=== PATIENT | male | born 1995 | race Caucasian/White ===

== ENCOUNTER 2024-12-11 05:45 | Inpatient (IN) ==
[2024-12-11 06:26] LABS: Basophils # (auto) 0.03 K/uL (0.00-0.20); Basophils % (auto) 0.4 %; Eosinophils # (auto) 0.11 K/uL (0.00-0.50); Eosinophils % (auto) 1.3 %; Hematocrit (blood only) 47.4 % (42.0-52.0); Hemoglobin 16.8 g/dl (14.0-18.0); Immature Granulocytes # (auto) 0.03 K/uL (0.01-0.20); Immature Granulocytes % (auto) 0.4 %; Lymphocytes # (auto) 2.85 K/uL (1.20-3.40); Lymphocytes % (auto) 34.3 %; Mean Corpuscular Hemoglobin 29.5 pg (25.0-34.0); Mean Corpuscular Hgb Conc 35.4 g/dL (32.0-36.0); Mean Corpuscular Volume 83.2 fL (80.0-100.0); Mean Platelet Volume 10.4 fL (9.4-12.4); Monocytes # (auto) 0.65 K/uL (0.11-0.59); Monocytes % (auto) 7.8 %; Neutrophils # (auto) 4.64 K/uL (1.40-6.50); Neutrophils % (auto) 55.8 %; Platelet Count 338 K/uL (130-400); RDW Coefficient of Variation 12.8 % (11.5-14.5); RDW Standard Deviation 38.5 fL (36.4-46.3); White Blood Count 8.31 K/ul (4.8-10.8)
[2024-12-11 06:38] LABS: Albumin Globulin Ratio 1.8 (0.9-2); Albumin Level 4.8 gm/dl (3.4-5.0); BUN Creatinine Ratio 17.5 (10-20); Bilirubin,Total 0.8 mg/dl (0.2-1.0); Calcium 9.7 mg/dl (8.6-10.3); Creatinine Clr Calc Pharmacy 153.7 ml/min; Globulin 2.6 gm/dl (2.5-4.0); Magnesium 1.9 mg/dl (1.7-2.4); Potassium 4.1 mmol/L (3.5-5.1); Total Protein 7.4 gm/dl (6.0-8.3)
[2024-12-11 06:44] LABS: Troponin I High Sensitivity 2.9 pg/ml (0-20)
[2024-12-11 06:49] LABS: INR 1.1 (0.9-1.1); Partial Thromboplastin Ratio 1.1; Partial Thromboplastin Time 30 Seconds (21-31); Prothrombin Time 11.4 Seconds (9.0-12.0)
[2024-12-11 06:51] LABS: Appearance Urine Clear (Clear); Bilirubin Urine 1+ (Negative); Blood Urine Negative (Negative); Color Urine Yellow; Glucose Urine UA Negative (Negative); Ketones Urine Negative (Negative); Leukocyte Esterase Urine Negative (Negative); Nitrite Urine Negative (Negative); Protein Urine Trace (Negative); Specific Gravity Urine >= 1.030 (1.000-1.030); Urobilinogen Urine Negative (Negative)
--- NOTE | 2024-12-11 06:53 | Emergency Department Note ---
Impression & Plan Acute confusion ED Provider Note HISTORY OF PRESENT ILLNESS: Patient is a 29-year-old male presenting with reported confusion. Girlfriend of 6 years provides history. Reports that the patient started having decreasing mood and decreased energy in early October. 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 Girlfriend reports that the patient seemed very down and depressed but they went home to [place] and he ended up being admitted to the hospital in [place] for a week. Girlfriend reports that his creatinine kinase was significantly elevated during his stay at the hospital. Reports that with IV fluids he improved. States that he was seen by psychiatry and told he was depressed but no new medications were initiated. She reports that he had EEGs done which were negative and he had a "catatonia test" which was negative. Reports that the patient was very withdrawn throughout the holidays and did not "reacted all to getting really nice boots and did not interact with his loved ones." She states that he was doing better the 2 days prior to coming back to [place] and so they decided to come back further neck semester of law school. However, girlfriend reports that the patient has been sleeping frequently over the last few days. Reports that he "smiles and just pops his head and closes his eyes and does not really respond at all." She states this is not his normal demeanor. States that he has not been getting up out of bed. Denies any new medications or any new supplements. Denies any recreational drug use or alcohol use. No reported fevers. No reported falls. ROS: as above PHYSICAL EXAM: Constitutional: Patient appears in no acute distress. HENT: Head: Normocephalic and atraumatic. Eyes: EOMI, PERRL Mouth/Throat: Mucous membranes moist. Neck: Trachea midline. Neck supple. Cardiovascular: RRR, No murmurs, rubs or gallops. Intact distal pulses. Pulmonary/Chest: No respiratory distress. Breath sounds clear and equal bilaterally. No wheezes or rales. Abdominal: Abdomen soft, no tenderness, rebound or guarding. Musculoskeletal: No edema, tenderness or deformity noted. Skin: Warm and dry. No rash, erythema, pallor or cyanosis Neurological: Patient does not open his eyes to painful stimulus. When the eyes are attempted to be opened, the patient squeezes them shut. When bilateral lower extremities are lifted off the bed and crossed over each other to test for any facility, the patient does move his leg and then drop it to the bed. He is uncooperative with any further neurological examination. MDM: - Vitals signs stable - History obtained via patient's girlfriend, given patient being uncooperative with exam. History as above. - Chronic conditions affecting care: None - Differential diagnoses include, but are not limited to: Depression; catatonia; drug intoxication; alcohol intoxication; electrolyte abnormality; ACS; intracranial hemorrhage; ACS - Order placed for continuous cardiac monitoring. At this time, monitor showed rate of 80 bpm with normal sinus rhythm, per my interpretation. - External medical records reviewed. - EKG interpreted by myself showed normal sinus rhythm. Rate 89 bpm. QT 364. No acute ischemic changes. - Laboratory workup interpreted by myself showed normal WBC; normal PT/INR; stable electrolytes; slightly elevated ALT (61); normal CK; normal troponin; normal TSH; negative ethanol - Viral respiratory panel negative - UA negative for infection - UDS negative - CXR negative for pneumonia, per my interpretation - CT head wo contrast negative for acute pathology -Patient does not participate in his examination. As documented, he does squeezes eyes shut when you try to open them and he does purposely move his legs away from each other prior to dropping them to the bed. Will admit to hospitalist service. Likely a psychiatric component, given the precipitation of the events with him failing a test. Patient given 1 mg IV ativan. - Discussion was had with mattress spring encaser about patient's case and need for admission - Hospitalist consulted for admission - Patient admitted to [facility] hospitalist service for further evaluation and management. ASSESSMENT AND PLAN: Diagnosis: acute confusion Plan: admit Past Med/Surg History Problem List (Updated 12/11/24 @ 08:34 by Liz Rao MD) Acute confusion (Acute) ADHD Medical History ADHD Surgical History No history of previous surgery Social History Smoking Status: Former smoker Preferred Language: Amharic Feels Safe at Home: Yes Allergies Allergies Allergy/AdvReac Type Severity Reaction Status Date / Time No Known Allergies Allergy Verified 01/06/23 09:33 Results & Data (ED) Vital Signs Vital Signs - 24 hr 12/11/24 05:47 12/11/24 05:57 12/11/24 06:05 Temperature 37.0 C Temperature Source Oral Pulse Rate 82 79 86 Pulse Rate [Apical] Pulse Rhythm Regular Pulse Rhythm [Apical] Pulse Strength [Apical] Respiratory Rate 18 24 Respiratory Effort / Characteristics Non-Labored Spontaneous Respiratory Depth Normal Respiratory Pattern Blood Pressure 141/95 H Blood Pressure [Left Arm] Blood Pressure Mean 110 Blood Pressure Mean [Left Arm] Blood Pressure Position [Left Arm] Pulse Oximetry 95 96 Oxygen Delivery Method Room Air Room Air Sepsis Recent Fever Within 48 Hours No Sepsis New/Unexplained Change in Mental Status No Sepsis Action Taken by Nursing No Action Required 12/11/24 06:45 Temperature Temperature Source Pulse Rate Pulse Rate [Apical] 76 Pulse Rhythm Pulse Rhythm [Apical] Regular Pulse Strength [Apical] Normal Respiratory Rate 20 Respiratory Effort / Characteristics Non-Labored Spontaneous Respiratory Depth Normal Respiratory Pattern Regular Blood Pressure Blood Pressure [Left Arm] 128/89 Blood Pressure Mean Blood Pressure Mean [Left Arm] 102 Blood Pressure Position [Left Arm] Lying Pulse Oximetry 96 Oxygen Delivery Method Room Air Sepsis Recent Fever Within 48 Hours Sepsis New/Unexplained Change in Mental Status Sepsis Action Taken by Nursing Laboratory Data 12/11/24 06:02 12/11/24 06:02 Lab Results 12/11/24 12/11/24 Range/Units 06:02 06:32 WBC 8.31 (4.8-10.8) K/ul RBC 5.70 (4.70-6.10) M/uL Hgb 16.8 (14.0-18.0) g/dl Hct 47.4 (42.0-52.0) % MCV 83.2 (80.0-100.0) fL MCH 29.5 (25.0-34.0) pg MCHC 35.4 (32.0-36.0) g/dL RDW Std Deviation 38.5 (36.4-46.3) fL RDW Coeff of Maurice 12.8 (11.5-14.5) % Plt Count 338 (130-400) K/uL MPV 10.4 (9.4-12.4) fL Immature Gran % (Auto) 0.4 % Neut % (Auto) 55.8 % Lymph % (Auto) 34.3 % Stewart % (Auto) 7.8 % Eos % (Auto) 1.3 % Baso % (Auto) 0.4 % Neut # (Auto) 4.64 (1.40-6.50) K/uL Lymph # (Auto) 2.85 (1.20-3.40) K/uL Stewart # (Auto) 0.65 H (0.11-0.59) K/uL Eos # (Auto) 0.11 (0.00-0.50) K/uL Baso # (Auto) 0.03 (0.00-0.20) K/uL Immature Gran # (Auto) 0.03 (0.01-0.20) K/uL PT 11.4 (9.0-12.0) Seconds INR 1.1 (0.9-1.1) APTT 30 (21-31) Seconds PTT Ratio 1.1 Sodium 138 (136-145) mmol/L Potassium 4.1 (3.5-5.1) mmol/L Chloride 104 (98-107) mmol/L Carbon Dioxide 24 (21-32) mmol/L Anion Gap 10 (3-11) BUN 14 (6-23) mg/dl Creatinine 0.80 (0.6-1.4) mg/dl Est Cr Clr Drug Dosing 153.7 ml/min eGFR 123.63 BUN/Creatinine Ratio 17.5 (10-20) Glucose 103 H (70-99(Fasting)) mg/dl Calcium 9.7 (8.6-10.3) mg/dl Magnesium 1.9 (1.7-2.4) mg/dl Total Bilirubin 0.8 (0.2-1.0) mg/dl AST 28 (13-39) U/L ALT 61 H (7-52) U/L Alkaline Phosphatase 72 (34-104) U/L Ammonia 31.0 (18-72) umol/L Total Creatine Kinase 51 (30-223) U/L Troponin I High Sens 2.9 (0-20) pg/ml Total Protein 7.4 (6.0-8.3) gm/dl Albumin 4.8 (3.4-5.0) gm/dl Globulin 2.6 (2.5-4.0) gm/dl Albumin/Globulin Ratio 1.8 (0.9-2) TSH 1.997 (0.300-4.500) uIu/ml Urine Color Yellow Urine Appearance Clear (Clear) Urine pH 6.0 (4.5-7.5) Ur Specific [place] >= 1.030 (1.000-1.030) Urine Protein Trace H (Negative) Urine Glucose (UA) Negative (Negative) Urine Ketones Negative (Negative) Urine Blood Negative (Negative) Urine Nitrite Negative (Negative) Urine Bilirubin 1+ H (Negative) Urine Urobilinogen Negative (Negative) Ur Leukocyte Esterase Negative (Negative) Urine RBC 0-2 (0-2) /hpf Urine WBC 0-5 (0-5) /hpf Ur Epithelial Cells 0-2 (0-2) /hpf Urine Bacteria None Seen (None Seen) Urine Mucus Present A (None Prsent) Urine Opiates Screen Neg (Neg) Ur Methadone, Qual Neg (Neg) Urine Fentanyl Screen Neg (Neg) Urine Barbiturates Neg (Neg) Ur Phencyclidine (PCP) Neg (Neg) U Amphetamin/Meth Scrn Neg (Neg) MDMA (Ecstasy) Screen Neg (Neg) U Benzodiazepines Scrn Neg (Neg) Ur Cocaine Metabolite Neg (Neg) U Marijuana (THC) Screen Neg (Neg) Ethyl Alcohol mg/dL < 10.0 (<10.0) mg/dl Adenovirus (PCR) Not Detected (NotDetected) B. pertussis DNA (PCR) Not Detected (NotDetected) B.parapertussis DNA PCR Not Detected (NotDetected) C. pneumoniae DNA (PCR) Not Detected (NotDetected) Coronavirus OC43 (PCR) Not Detected (NotDetected) Coronavirus HKU1 (PCR) Not Detected (NotDetected) Coronavirus 229E (PCR) Not Detected (NotDetected) SARS-CoV-2 (PCR) Not Detected (NotDetected) Coronavirus NL63 (PCR) Not Detected (NotDetected) Human Metapneumovir PCR Not Detected (NotDetected) Influenza Type A (PCR) Not Detected (NotDetected) Influenza Type B (PCR) Not Detected (NotDetected) M. pneumoniae (PCR) Not Detected (NotDetected) Parainfluenza 1 (PCR) Not Detected (NotDetected) Parainfluenza 2 (PCR) Not Detected (NotDetected) Parainfluenza 3 (PCR) Not Detected (NotDetected) Parainfluenza 4 (PCR) Not Detected (NotDetected) RSV (PCR) Not Detected (NotDetected) Entero/Rhino (PCR) Not Detected (NotDetected) Administered Medications Discontinued Medications Lorazepam (Lorazepam 2 Mg/1 Ml Vial) 1 mg IV NOW STA Stop: 12/11/24 07:15 Last Admin: 12/11/24 07:56 Dose: 1 mg Documented By: LEROY Imaging Data Radiologist's Impression: Head CT 12/11/24 06:07 EXAM: CT head/brain wo con CLINICAL HISTORY: ALTERED MENTAL STATUS. TECHNIQUE: Axial non-contrast CT scan of the brain was performed from the skull base to the high parietal region. One of the following dose reduction techniques were utilized for this exam: Automated exposure control, adjustment of the mA and/or kV according to patient size, use of iterative reconstruction. CTDI: 38.24 mGy. DLP :625.80 mGy.cm. COMPARISON: None. FINDINGS: Brain Parenchyma:: Normal attenuation of the cerebral hemispheres, cerebellum, and brainstem. Jose Francisco-cisterna magna is seen. No evidence of hemorrhage, or mass effect. No abnormal areas of hypo- or hyperattenuation. Ventricular System: Ventricles are normal in size and configuration. No evidence of hydrocephalus or ventricular enlargement. Subarachnoid Spaces: Normal sulci and cisterns. No evidence of subarachnoid hemorrhage or extra-axial fluid collections. Sinuses: Clear paranasal sinuses. No evidence of sinusitis or mucosal thickening. Mastoid Air Cells: Clear mastoid air cells. No evidence of mastoiditis. Skull: Normal skull morphology. IMPRESSION: No acute cerebral abnormality. Electronically signed by Carole Stoll 12-11-2024 07:10 AM Discharge Plan Visit Data Chief Complaint: Altered Mental Status Stated Complaint: SEVERE FATTY LIVER,AMNESIA,CAN'T FUNCTION ED Provider: Liz Rao Discharge Problem: Acute confusion Forms Stand Alone Forms: [facility] Referrals Referrals: [facility] [Primary Care Provider] -
[2024-12-11 06:54] LABS: Thyroid Stimulating Hormone 1.997 uIu/ml (0.300-4.500)
[2024-12-11 07:04] LABS: Adenovirus PCR Not Detected (NotDetected); Bordetella parapertussis PCR Not Detected (NotDetected); Bordetella pertussis PCR Not Detected (NotDetected); Chlamydia pneumoniae PCR Not Detected (NotDetected); Coronavirus 229E PCR Not Detected (NotDetected); Coronavirus CoV-2 (COVID19)PCR Not Detected (NotDetected); Coronavirus HKU1 PCR Not Detected (NotDetected); Coronavirus NL63 PCR Not Detected (NotDetected); Coronavirus OC43PCR Not Detected (NotDetected); Human Metapneumovirus PCR Not Detected (NotDetected); Influenza A PCR Not Detected (NotDetected); Influenza B PCR Not Detected (NotDetected); Mycoplasma pneumoniae PCR Not Detected (NotDetected); Parainfluenza Virus 1 PCR Not Detected (NotDetected); Parainfluenza Virus 2 PCR Not Detected (NotDetected); Parainfluenza Virus 3 PCR Not Detected (NotDetected); Parainfluenza Virus 4 PCR Not Detected (NotDetected); Respiratory Syncytial VirusPCR Not Detected (NotDetected); Rhinovirus/Enterovirus PCR Not Detected (NotDetected)
[2024-12-11 07:10] LABS: Bacteria Urine None Seen (None Seen); Epithelial Cell Urine 0-2 /hpf (0-2); Mucus Urine Present (None Prsent); RBC Urine 0-2 /hpf (0-2); WBC Urine 0-5 /hpf (0-5)
--- NOTE | 2024-12-11 07:10 | CT Scan Report ---
EXAM: CT head/brain wo con CLINICAL HISTORY: ALTERED MENTAL STATUS. TECHNIQUE: Axial non-contrast CT scan of the brain was performed from the skull base to the high parietal region. One of the following dose reduction techniques were utilized for this exam: Automated exposure control, adjustment of the mA and/or kV according to patient size, use of iterative reconstruction. CTDI: 38.24 mGy. DLP :625.80 mGy.cm. COMPARISON: None. FINDINGS: Brain Parenchyma:: Normal attenuation of the cerebral hemispheres, cerebellum, and brainstem. Jose Francisco-cisterna magna is seen. No evidence of hemorrhage, or mass effect. No abnormal areas of hypo- or hyperattenuation. Ventricular System: Ventricles are normal in size and configuration. No evidence of hydrocephalus or ventricular enlargement. Subarachnoid Spaces: Normal sulci and cisterns. No evidence of subarachnoid hemorrhage or extra-axial fluid collections. Sinuses: Clear paranasal sinuses. No evidence of sinusitis or mucosal thickening. Mastoid Air Cells: Clear mastoid air cells. No evidence of mastoiditis. Skull: Normal skull morphology. IMPRESSION: No acute cerebral abnormality. Electronically signed by Carole Stoll 12-11-2024 07:10 AM
[2024-12-11 07:55] LABS: Amphetamines+Metham, Urine Neg (Neg); Barbiturates, Urine Neg (Neg); Benzodiazepine, Urine Neg (Neg); Cocaine, Urine Neg (Neg); Fentanyl, Urine Neg (Neg); MDMA (Ecstacy), Urine Neg (Neg); Marijuana, Urine Neg (Neg); Methadone, Urine Neg (Neg); Opiate, Urine Neg (Neg); Phencyclidine, Urine Neg (Neg)
[2024-12-11] MEDS: LORazepam 2 MG/1 ML VIAL IV STA (07:56)
--- NOTE | 2024-12-11 08:41 | XRay Report ---
EXAM: XR chest 1V portable CLINICAL HISTORY: WEAKNESS SDM TECHNIQUE: X-ray images of the chest were obtained in AP projection. COMPARISON: No prior studies available for comparison. FINDINGS: Pulmonary Parenchyma: No evidence of consolidation, collapse, or focal opacities. No evidence of pleural effusion or pleural thickening. Heart and Mediastinum: Increased cardiac size. Right prominent hilar vascular markings. Bony Thorax: Bony thorax appears intact without fractures or deformities. IMPRESSION: 1. Cardiomegaly with right prominent hilar vascular markings; possibly related to congestion. 2. No evidence of consolidation, collapse, or focal opacities. Electronically signed by Carole Stoll 12-11-2024 08:41 AM
[2024-12-11] MEDS: SODIUM CHLORIDE 0.9% 1,000 ML IV SCH (08:45)
--- NOTE | 2024-12-11 08:45 | History & Physical Report ---
Date of Service December 11, 2024 Assessment & Plan (1) Unresponsive state: Plan: Supportive care. IV fluids. Currently NPO. Psychiatry consultation pending. Telemetry. (2) ADHD: Plan: By history. Currently he takes no medications according to his girlfriend who is at the bedside (3) Hepatic steatosis: Plan: Mildly elevated ALT. Other liver enzymes are entirely normal. Ammonia level normal. Plan Await psychiatry evaluation. He may need inpatient psychiatric care History of Present Illness Chief Complaint: Unresponsive Primary Care Provider: [facility] 29-year-old white male with a history of ADHD on no medications and depression. He was recently hospitalized and [place] for suspected depression. At that time, his EEG was reportedly normal. In our ED his chest x-ray reveals low lung volumes, EKG reveals normal sinus rhythm with nonspecific ST and T wave changes, head CT scan is negative, ammonia level is normal, CK is 51. Talk screen is pending. On examination the patient is unresponsive but squints to prevent eye examination. He will not allow either hand to fall on his face. He does grimace with sternal rub and he withdraws bilateral feet with plantar tickle. He received lorazepam intravenously in the ED. ABGs are pending to rule out CO2 narcosis but CO2 on basic metabolic profile is within normal limits. Psychiatry consultation has been requested. He will be kept n.p.o. on IV fluids and admitted for further evaluation and treatment. Allergies Allergy/AdvReac Type Severity Reaction Status Date / Time No Known Allergies Allergy Verified 01/06/23 09:33 Past Med/Surg History Problem List (Updated 12/11/24 @ 08:43 by López Davenport MD) Hepatic steatosis Unresponsive state Acute confusion (Acute) ADHD Medical History ADHD Surgical History No history of previous surgery Social History Smoking Status: Former smoker Preferred Language: Arabic Feels Safe at Home: Yes Review of Systems 2 Review of Systems: The patient is unresponsive and unable to answer any questions regarding review of systems at this time Physical Exam 2 Physical Exam: General-unresponsive. No fever HEENT-head atraumatic and normocephalic, the patient resists eye opening with bilateral squinting Neck-no lymphadenopathy or thyromegaly, trachea midline Chest-clear to auscultation. No rales, wheezing or rhonchi Cardiac-regular rate and rhythm, normal S1 and S2 Abdomen-normal bowel sounds, no hepatosplenomegaly Extremities-no cyanosis, clubbing, or edema Neuro-the patient is unresponsive. He squints to prevent eye examination. He does not allow either hand to fall on his face. He does react to sternal rub. He withdraws both feet to plantar tickle. Psychcannot assess Results & Data Results & Data Vital Signs (Past 12 Hours) Vital Signs Temp Pulse Pulse Resp BP BP Pulse Ox 12/11/24 06:45 76 20 128/89 96 12/11/24 06:05 86 24 96 12/11/24 05:57 79 12/11/24 05:47 37.0 C 82 18 141/95 H 95 O2 Del Method 12/11/24 06:45 Room Air 12/11/24 06:05 Room Air 12/11/24 05:57 12/11/24 05:47 Room Air Laboratory Results 12/11/24 06:02 12/11/24 06:02 PG Care Time/CCT Total # of Minutes Spent Total Time Spent with Patient: Total time spent is greater than 50% in coordination of care (as documented) at patient's floor/unit and/or counseling patient: Coding Level of Care Code 38698 INT INP/OBS CARE 3/75MIN Diagnoses Unresponsive state R41.89 ADHD F90.9 Hepatic steatosis K76.0
[2024-12-11 09:04] LABS: iSTAT Arterial Blood Gas HCO3 25 meg/L (19-24); iSTAT Arterial Blood Gas pCO2 40 mmHg (35-46); iSTAT Arterial Blood Gas pH 7.41 (7.35-7.45); iSTAT Arterial Blood Gas pO2 76 mmHg (80-95); iSTAT Carbon Dioxide 26 mmol/L (24-31); iSTAT FiO2 21 %; iSTAT Hematocrit 46 % (42-52); iSTAT Hemoglobin 15.6 g/dl (14.0-18.0); iSTAT Potassium 4.1 mmol/L (3.3-5.0); iSTAT Sample Type Arterial; iSTAT Sodium 138 mmol/L (135-144)
[2024-12-11] MEDS ORDERED: ONDANSETRON INJ 2 MG/ML 2 ML VIAL IV PRN (11:14)
[2024-12-11] MEDS ORDERED: ACETAMINOPHEN 1,000 MG/100 ML VIAL IV PRN (11:14)
[2024-12-11 12:07] LABS: Albumin Globulin Ratio 1.8 (0.9-2); Albumin Level 4.4 gm/dl (3.4-5.0); BUN Creatinine Ratio 15.6 (10-20); Bilirubin,Total 0.7 mg/dl (0.2-1.0); Calcium 9.4 mg/dl (8.6-10.3); Creatinine Clr Calc Pharmacy 159.7 ml/min; Globulin 2.4 gm/dl (2.5-4.0); Total Protein 6.8 gm/dl (6.0-8.3)
--- NOTE | 2024-12-11 14:50 | Psychiatric Consultation ---
Date of Consultation December 11, 2024 Impression / Recommendations Impression Diagnostically significant concern for catatonia and possibly psychosis given suspicion he may be internally preoccupied. Does seem that he had a fairly dramatic response to ativan dose earlier in ED, as was eating and speaking with his eyes open on my examination. Differential including functional neurological disorder given this was reportedly one of the suspected possible diagnoses following his admission in [place], but at this time high suspicion for catatonia. New Hitesh scale rating based on report of initial symptoms on ED arrival and based on my assessment: 13. Overall, I spent a total of 60 minutes with this case including review of chart records, review of labwork, direct evaluation of the patient at bedside, counseling the patient, discussion of the patient with the hospitalist provider, discussion with the psychiatric liason during clinical rounds, review of collateral historian information and documentation in the electronic health record. (1) Catatonia: (2) Unresponsive state: Plan -Start ativan 1mg TID IV for presumed catatonia, if he shows a beneficial response then can increase further to 2mg TID IV as needed -Will consider use of antipsychotic as catatonia symptoms resolve if concerns for psychosis/internal preoccupation persists Psych History Identifying Data 29 yo man with history of depression, anxiety, ADHD and recent hospitalization in [place] for elevated CK, concern for catatonia and new diagnosis of fatty liver disease and ZULEMA (no CPAP yet, using wedge pillow) admitted medically due to unresponsive state. Psychiatry consulted due to concern for catatonia. Chief Complaint "I'm ok". History of Present Illness Brandon was brought to the hospital by his girlfriend due to periods of unresponsiveness with poor po intake, excessive somnolence, odd posturing and holding his neck in rigid positions that has been worsening over the past few weeks. 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 His girlfriend at bedside shows a video of him with his head held at an odd, uncomfortable appearing position off the bed for periods of time and some small magnitude repetitive movements of his neck while his eyes are closed. She reports hospital in [place] "ruled out" catatonia after he became fatigued from a dose of ativan there. CK elevation was treated and he seemed to be showing some improvement on discharge. Since coming to [place] symptoms have worsened again. He's sleeping all the time but often doesn't appear to be sleeping per her report. He normally loves food but is hardly eating. At time of my assessment he is A&Ox4, eating a sandwich, eyes open. Speaks when asked questions but otherwise largely passive during conversation. Seems to be possibly responding to internal stimuli, smiling at times despite context of his girlfriend's description of his distressing symptoms and pauses when asked about auditory hallucinations in a manner that suggests he may be hearing voices. When asked about his pause he again denies any voices. He doesn't endorse any significant psychiatric symptoms. Does engage in automatic obedience (i.e. puts out hand when I ask him to do so and similarly with his tongue). Allergies Allergy/AdvReac Type Severity Reaction Status Date / Time No Known Allergies Allergy Verified 01/06/23 09:33 Home Medications Medication Instructions Recorded Confirmed Type No Known Home Medications 12/11/24 12/11/24 History Patient History Medical History ADHD Surgical History No history of previous surgery Social History Smoking Status: Never smoker Hx Alcohol Use: No Hx Substance Use: No Preferred Language: Hungarian Communication Ability: Impaired Brick Or Block Maker Required: No Beliefs That Will Affect Care: None Current Living Situation: Spouse Current Living Situation Comment: [employer] student, lives with girlfriend Feels Safe at Home: Yes Physical Exam Vital Signs (Past 24 Hours): Last Vital Signs Temp 37.0 C 12/11/24 05:47 Pulse 72 12/11/24 10:12 Resp 15 12/11/24 10:12 BP 127/85 12/11/24 10:00 Pulse Ox 96 12/11/24 10:12 O2 Del Method Room Air 12/11/24 06:45 Results & Data (PSY) Medications Administered Sodium Chloride (Nss) 1,000 mls @ 80 mls/hr IV .[id number] YOLANDA Stop: 12/12/24 08:29 Last Admin: 12/11/24 08:45 Dose: 80 mls/hr Documented By: ML Coding Level of Care Code 48886 IN/OBS CONSULT LVL 4,60M Diagnoses Catatonia F06.1 Unresponsive state R41.89
--- NOTE | 2024-12-11 14:58 | Electrocardiogram Report ---
Test Reason : Blood Pressure : */* mmHG Vent. Rate : 89 BPM Atrial Rate : 89 BPM P-R Int : 140 ms QRS Dur : 84 ms QT Int : 364 ms P-R-T Axes : 26 44 1 degrees QTcB Int : 442 ms Normal sinus rhythm Nonspecific T wave abnormality Abnormal ECG No previous ECGs available Confirmed by Lang Jesus ([id number]) on 12/11/2024 2:58:15 PM Referred By: Confirmed By: Lang Jesus
[2024-12-11] MEDS ORDERED: LORazepam 2 MG/1 ML VIAL IV SCH (21:00)
[2024-12-11] MEDS: LORazepam 2 MG/1 ML VIAL IV SCH (21:03)
[2024-12-12 10:42] LABS: Alanine Aminotransferase 52 U/L (7-52); Albumin Level 4.4 gm/dl (3.4-5.0); Alkaline Phosphatase 59 U/L (34-104); BUN Creatinine Ratio 17.6 (10-20); Bilirubin,Total 0.7 mg/dl (0.2-1.0); Blood Urea Nitrogen 13 mg/dl (6-23); Calcium 9.2 mg/dl (8.6-10.3); Carbon Dioxide 25 mmol/L (21-32); Chloride 106 mmol/L (98-107); Creatine Kinase 57 U/L (30-223); Creatinine Clr Calc Pharmacy 166.2 ml/min; Globulin 2.2 gm/dl (2.5-4.0); Glucose 95 mg/dl (70-99(Fasting)); Total Protein 6.6 gm/dl (6.0-8.3)
[2024-12-12 11:33] LABS: Potassium 3.9 mmol/L (3.5-5.1)
--- NOTE | 2024-12-12 12:56 | Neurology Consultation ---
Date of Consultation December 12, 2024 Assessment & Plan (1) Catatonia: History of Present Illness Attending Physician: López Davenport MD History of Present Illness S; pt awake and follows command well. actually spoke too. chart reviewed. no increase tone noted. pt's girl friend showed me the EEG report and [place] medical notes. EEG normal. admission HPI: 29-year-old white male with a history of ADHD on no medications and depression. He was recently hospitalized and [place] for suspected depression. At that time, his EEG was reportedly normal. In our ED his chest x-ray reveals low lung volumes, EKG reveals normal sinus rhythm with nonspecific ST and T wave changes, head CT scan is negative, ammonia level is normal, CK is 51. Talk screen is pending. On examination the patient is unresponsive but squints to prevent eye examination. He will not allow either hand to fall on his face. He does grimace with sternal rub and he withdraws bilateral feet with plantar tickle. He received lorazepam intravenously in the ED. ABGs are pending to rule out CO2 narcosis but CO2 on basic metabolic profile is within normal limits. Psychiatry consultation has been requested. He will be kept n.p.o. on IV fluids and admitted for further evaluation and treatment. Allergies Allergy/AdvReac Type Severity Reaction Status Date / Time No Known Allergies Allergy Verified 01/06/23 09:33 Home Medications Medication Instructions Recorded Confirmed Type No Known Home Medications 12/11/24 12/11/24 History Patient History Medical History ADHD Surgical History No history of previous surgery Social History Smoking Status: Never smoker Hx Alcohol Use: No Hx Substance Use: No Preferred Language: Thai Communication Ability: Impaired Candy Supervisor Required: No Beliefs That Will Affect Care: None Current Living Situation: Spouse Current Living Situation Comment: [employer] student, lives with girlfriend Feels Safe at Home: Yes Exam (Neuro) Physical Exam: HEENT: normocephalic grossly Neuro: Mental: Alert, follows command well. said "thank you" and also seems to understand the conversation i was having with the family. normal comprehension. CN: PERRL, Full EOM, symmetric face, midline T/U/P, grossly full ROM neck Motor: No abnormal movements, normal tone, 5/5 t/o bilaterally grossly. 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 I do not see neurological etiology for his catatonia or signs of seizure. Mom is convinced that he has seizure disorder. Recommendations: i try to convince mom and family that this is not seizure and EEG is not necessary but they demand having another EEG. will order EEG not much to offer from neurology. continue tx with Psychiatry. will sign off, call again if there is new question, otherwise, no further neuro work up needed. Chart reviewed I have spent more than 50% educating patient/family about potential diagnosis and neurological evaluation and coordinating care with patient's treatment team. Total time spent (including chart review and coordination of care): 45 min (this includes chart review). Results & Data Vital Signs (Past 12 Hours) Vital Signs Temp Pulse Pulse Resp BP BP Pulse Ox 12/12/24 11:46 36.7 C 86 18 127/79 96 12/12/24 07:53 36.7 C 91 H 18 122/85 96 12/12/24 07:27 94 H O2 Del Method 12/12/24 11:46 Room Air 12/12/24 07:53 Room Air 12/12/24 07:27 PG Care Time/CCT Total # of Minutes Spent Total Time Spent with Patient: Total time spent is greater than 50% in coordination of care (as documented) at patient's floor/unit and/or counseling patient: Coding Level of Care Code 53611 IN/OBS CONSULT LVL 3,45M Diagnoses Catatonia F06.1
--- NOTE | 2024-12-12 14:21 | Psychiatric Progress Note ---
Date of Service December 12, 2024 Impression / Recommendations Impression Diagnostically significant concern for catatonia and possibly psychosis given suspicion he may be internally preoccupied. Does seem that he had a fairly dramatic response to ativan dose earlier in ED, as was eating and speaking with his eyes open on my examination. Differential including functional neurological disorder given this was reportedly one of the suspected possible diagnoses following his admission in [place] vs prolonged withdrawal symptoms from previous energy drink/caffeine/Vyanse use. A: Faily declined ativan today due to concerns for shallow breathing and sedation this morning. EEG planned, recommend ativan trial resume after this. Ongoing odd blinking/staring today which could be catatonia vs psychosis. If limited response to ativan at 1mg dose consider titration. If ativan seems to be making sedation worse then would discontinue after 1-2 days and trial risperidone 1mg BID to rule out internal preoccupation. Overall, I spent a total of 60 minutes with this case including review of chart records, review of labwork, direct evaluation of the patient at bedside, counseling the patient, discussion of the patient with the hospitalist provider, discussion with the psychiatric liason during clinical rounds, review of collateral historian information from girlfriend and mother at bedside and documentation in the electronic health record. (1) Catatonia: (2) Unresponsive state: Plan 12/13/2024: -consider overnight pulse ox monitor given recent diagnosis of sleep apnea -continue ativan 1mg TID IV and titrate to effect up to 2mg TID IV -if limited response to ativan or increased sedation then discontinue and trial risperidone 1mg BID due to concern for possible internal preoccupation. 12/12/2024: -Start ativan 1mg TID IV for presumed catatonia, if he shows a beneficial response then can increase further to 2mg TID IV as needed -Will consider use of antipsychotic as catatonia symptoms resolve if concerns for psychosis/internal preoccupation persists Interval History Identifying Information 29 yo man with history of depression, anxiety, ADHD and recent hospitalization in [place] for elevated CK, concern for catatonia and new diagnosis of fatty liver disease and ZULEMA (no CPAP yet, using wedge pillow) admitted medically due to unresponsive state. Psychiatry consulted due to concern for catatonia. Chief Complaint "Hi". Subjective Subjective Patient was seen & assessed and interval progress reviewed. No overnight events noted. Family declined ativan IM this morning. Mid-day he is awake and says hi, odd stare at times, slightly latent response when asked about possible visual hallucinations. He then closes his eyes and eyelids are noted to flutter repetitively. His mother and girlfriend at bedside ask a variety of questions about diagnostic clarification, treatments, catatonia symptoms and reviewed possibility for internal preoccupation. Physical Exam Vital Signs (Past 24 Hours) Last Vital Signs Temp 36.7 C 12/12/24 11:46 Pulse 86 12/12/24 11:46 Resp 18 12/12/24 11:46 BP 127/79 12/12/24 11:46 Pulse Ox 96 12/12/24 11:46 O2 Del Method Room Air 12/12/24 11:46 Results & Data ([facility]) Laboratory Results Laboratory Results - last 24 hr 12/12/24 12/12/24 05:57 10:51 Sodium TNP 137 Potassium TNP 3.9 Chloride 106 Carbon Dioxide 25 Anion Gap TNP BUN 13 Creatinine 0.74 Est Cr Clr Drug Dosing 166.2 eGFR 126.57 BUN/Creatinine Ratio 17.6 Glucose 95 Calcium 9.2 Total Bilirubin 0.7 AST TNP 29 ALT 52 Alkaline Phosphatase 59 Total Creatine Kinase 57 Total Protein 6.6 Albumin 4.4 Globulin 2.2 L Albumin/Globulin Ratio 2.0 Current Inpatient Medications Current Inpatient Medications: Current Inpatient Medications Acetaminophen (Ofirmev) 1,000 mg in 100 mls @ 400 mls/hr IV Q8H PRN PRN Reason: Fever Stop: 12/14/24 11:13 Lorazepam (Lorazepam 2 Mg/1 Ml Vial) 1 mg IV TID [facility] Stop: 01/10/25 20:59 Last Admin: 12/12/24 10:05 Dose: Not Given Ondansetron HCl (Ondansetron Inj 2 Mg/Ml 2 Ml Vial) 4 mg IV Q6H PRN PRN Reason: Nausea And Vomiting Stop: 01/10/25 11:13
--- NOTE | 2024-12-12 15:21 | Hospitalist Progress Note ---
Date of Service December 12, 2024 Assessment & Plan (1) Unresponsive state: Plan: Supportive care. The patient is able to take solids and liquids orally when awake. Psychiatry consultation noted. Neurology consultation noted. EEG and brain MRI scan ordered and pending. Telemetry. (2) ADHD: Plan: By history. Currently he takes no medications according to his girlfriend who is at the bedside (3) Hepatic steatosis: Plan: Mildly elevated ALT. Other liver enzymes are entirely normal. Ammonia level normal. Plan Continue Ativan therapy as recommended by psychiatry. Await brain MRI scan and EEG although neurology consultation suggests low probability of seizure disorder. Hopeful discharge to home within the next 2 to 3 days. Admission and Anticipated Discharge Date Admission Date: December 11, 2024 Subjective The patient was unresponsive at the time of my first visit but on my second visit he was awake and alert. Family requested neurological consultation and are demanding another EEG. Neurology consultation noted. EEG is pending. Brain MRI scan also ordered. No evidence of CO2 retention on ABGs. Psychiatry entry noted. The family initially refused further Ativan but apparently now is agreeable to proceed with Ativan treatment. Review of Systems 2 Review of Systems: The patient is unresponsive and unable to answer any questions regarding review of systems at the time of my first visit today, December 12 Physical Exam 2 Physical Exam: General-unresponsive. No fever HEENT-head atraumatic and normocephalic, the patient resists eye opening with bilateral squinting Neck-no lymphadenopathy or thyromegaly, trachea midline Chest-clear to auscultation. No rales, wheezing or rhonchi Cardiac-regular rate and rhythm, normal S1 and S2 Abdomen-normal bowel sounds, no hepatosplenomegaly Extremities-no cyanosis, clubbing, or edema Neuro-the patient is unresponsive. He squints to prevent eye examination. He does not allow either hand to fall on his face. He does react to sternal rub. He withdraws both feet to plantar tickle. Psychcannot assess Results & Data Results & Data Vital Signs (Past 12 Hours) Vital Signs Temp Pulse Pulse Resp BP BP Pulse Ox 12/12/24 15:07 37.1 C 84 16 120/79 95 12/12/24 15:04 88 12/12/24 11:46 36.7 C 86 18 127/79 96 12/12/24 07:53 36.7 C 91 H 18 122/85 96 01/21/25 07:27 94 H O2 Del Method 12/12/24 15:07 Room Air 12/12/24 15:04 12/12/24 11:46 Room Air 12/12/24 07:53 Room Air 12/12/24 07:27 Laboratory Results 12/11/24 06:02 12/12/24 10:51 PG Care Time/CCT Total # of Minutes Spent Total Time Spent with Patient: Total time spent is greater than 50% in coordination of care (as documented) at patient's floor/unit and/or counseling patient: Coding Level of Care Code 35606 SUB INP/OBS CARE 3/50MIN Diagnoses Unresponsive state R41.89 ADHD F90.9 Hepatic steatosis K76.0
--- NOTE | 2024-12-12 17:08 | Magnetic Resonance Report ---
Clinical History: Unresponsive Technique: Multiple T1 and T2-weighted magnetic resonance images were obtained of the brain without gadolinium contrast Comparison is made to the head CT dated 12/11/2024 Findings: There is no sign of acute or old infarction with normal-appearing diffusion weighted images. No definite focus of demyelination is seen. No definite mass lesion is seen on this noncontrast study. There is no intracranial hemorrhage or other fluid collection. No midline shift or other form of herniation is seen. There is no hydrocephalus. Normal flow-voids are seen within the arteries of the [id number]. The orbits and paranasal sinuses appear normal. The mastoid air cells appear clear. Impression: Unremarkable noncontrast MRI of the brain Electronically signed by Gautam Harrington 12-12-2024 5:08 PM
[2024-12-13 07:37] LABS: Albumin Level 4.7 gm/dl (3.4-5.0); BUN Creatinine Ratio 13.6 (10-20); Bilirubin,Total 0.7 mg/dl (0.2-1.0); Calcium 9.8 mg/dl (8.6-10.3); Creatinine Clr Calc Pharmacy 151.9 ml/min; Globulin 2.4 gm/dl (2.5-4.0); Potassium 4.1 mmol/L (3.5-5.1); Total Protein 7.1 gm/dl (6.0-8.3)
--- NOTE | 2024-12-13 09:04 | Electroencephalogram ---
EEG Procedure Note Date of Service December 13, 2024 Start / End Times Start Time: 611 End Time: 06 Referring Physician erik ricks History catatonia Home Medication List Medication Instructions Recorded Confirmed Type No Known Home Medications 12/11/24 12/11/24 History Inpatient Medication List Lorazepam (Lorazepam 2 Mg/1 Ml Vial) 1 mg IV TID [facility] Stop: 01/10/25 20:59 Last Admin: 12/12/24 21:55 Dose: 1 mg Documented By: Admin: 12/12/24 15:13 Dose: Not Given Documented By: Admin: 12/12/24 10:05 Dose: Not Given Documented By: Admin: 12/11/24 21:03 Dose: 1 mg Documented By: BILLIE Discontinued Medications Sodium Chloride (Nss) 1,000 mls @ 80 mls/hr IV .[id number] [facility]OLANDA Stop: 12/12/24 08:29 Last Infusion: 12/12/24 10:05 Dose: Infused Documented By: Admin: 12/11/24 21:03 Dose: 80 mls/hr Documented By: Infusion: 12/11/24 21:03 Dose: Infused Documented By: Admin: 12/11/24 08:45 Dose: 80 mls/hr Documented By: LEROY Lorazepam (Lorazepam 2 Mg/1 Ml Vial) 1 mg IV NOW STA Stop: 12/11/24 07:15 Last Admin: 12/11/24 07:56 Dose: 1 mg Documented By: LEROY Description This is a 21 electrode EEG with a single channel dedicated to limited EKG. The electrodes were placed in accordance with the International 10-20 system. Interpretation This is a 21 electrode EEG with a single channel dedicated to limited EKG. The electrodes were placed in accordance with the International 10-20 system. There is a posterior dominant rhythm of 8 to 9 Hz which is symmetrically distributed and attenuates with eye opening. There is a normal anterior to posterior organization. Photic stimulation: unremarkable Hyperventilation performed: ___ unremarkable; _x_ not performed. There is no focal slowing. No epileptiform abnormalities. Sleep stage: _x_ not achieved, ___drowsy state, ___ Stage II, ___ REM stage achieved. Interpretation Normal-appearing awake EEG. [facility] EEG Procedure Codes Indication for Procedure (1) Catatonia: Neurology Neurology: 18776 EEG include record awake & drowsy
--- NOTE | 2024-12-13 12:59 | Hospitalist Progress Note ---
Date of Service December 13, 2024 Assessment & Plan (1) Unresponsive state: Plan: Supportive care. The patient is able to take solids and liquids orally when awake. Psychiatry consultation noted. He has been started on scheduled Ativan dosing for suspected catatonia. Neurology consultation noted. EEG and brain MRI results are normal. (2) ADHD: Plan: By history. Currently he takes no medications according to his girlfriend who is at the bedside (3) Hepatic steatosis: Plan: Mildly elevated ALT. Other liver enzymes are entirely normal. Ammonia level normal. (4) Vitamin D deficiency: Plan: Oral supplementation started Plan Psychiatry states the family is interested in taking the patient home to [place] this December 15. Continue Ativan therapy as recommended by psychiatry. Admission and Anticipated Discharge Date Admission Date: December 11, 2024 Subjective Brain MRI scan is normal. EEG is normal. Vitamin D and B12 levels checked at family request. B12 is normal and vitamin D is low. Oral vitamin D supplementation has been restarted. Ativan increased to 2 mg intravenously 3 times a day per psychiatry recommendation. Neurology consultation noted. Psychiatry states the family wishes to take the patient home this December 15 Review of Systems 2 Review of Systems: The patient is awake and tracks with his eyes but is nonverbal with me Physical Exam 2 Physical Exam: General-awake and appears alert. Eyes are tracking. Nonverbal. No fever HEENT-head atraumatic and normocephalic, the patient resists eye opening with bilateral squinting Neck-no lymphadenopathy or thyromegaly, trachea midline Chest-clear to auscultation. No rales, wheezing or rhonchi Cardiac-regular rate and rhythm, normal S1 and S2 Abdomen-normal bowel sounds, no hepatosplenomegaly Extremities-no cyanosis, clubbing, or edema Neuro-no focal deficits. Normal tracking with his eyes. Nonverbal with me. Psychcannot assess Results & Data Results & Data Vital Signs (Past 12 Hours) Vital Signs Temp Pulse Resp BP Pulse Ox O2 Del Method 12/13/24 07:14 36.3 C L 80 16 125/83 94 Room Air Laboratory Results 12/11/24 06:02 12/13/24 05:46 PG Care Time/CCT Total # of Minutes Spent Total Time Spent with Patient: Total time spent is greater than 50% in coordination of care (as documented) at patient's floor/unit and/or counseling patient: Coding Level of Care Code 66654 SUB INP/OBS CARE 3/50MIN Diagnoses Unresponsive state R41.89 ADHD F90.9 Hepatic steatosis K76.0 Vitamin D deficiency E55.9
[2024-12-13] MEDS: LORazepam 2 MG/1 ML VIAL IV SCH (13:47)
[2024-12-13] MEDS: CHOLECALCIFEROL 125 MCG (5,000 UNITS) TAB PO SCH (13:47)
--- NOTE | 2024-12-13 15:32 | Psychiatric Progress Note ---
Date of Service December 13, 2024 Impression / Recommendations Impression Diagnostically significant concern for catatonia and possibly psychosis given suspicion he may be internally preoccupied. Does seem that he had a fairly dramatic response to ativan dose earlier in ED, as was eating and speaking with his eyes open on my examination. Differential including functional neurological disorder given this was reportedly one of the suspected possible diagnoses following his admission in [place] vs prolonged withdrawal symptoms from previous energy drink/caffeine/Vyanse use. A: Possibly some increased alertness after AM dose of ativan, recommend increasing standing dose to see if this lessens periods of mutism, lack of movement and lessens his sense of muscle stiffness. Less concern for internal preoccupation today. Overall, I spent a total of 45 minutes with this case including review of chart records, review of labwork, direct evaluation of the patient at bedside, counseling the patient, discussion of the patient with the hospitalist provider, discussion with the psychiatric liason during clinical rounds, review of collateral historian information from girlfriend and mother at bedside and documentation in the electronic health record. (1) Catatonia: (2) Unresponsive state: Plan 12/13/2024: -Increase ativan to 2mg TID IV then consider transition to po tomorrow if improvement as family hopes to bring him home to [place] on Wednesday12/12/2024: -consider overnight pulse ox monitor given recent diagnosis of sleep apnea -continue ativan 1mg TID IV and titrate to effect up to 2mg TID IV -if limited response to ativan or increased sedation then discontinue and trial risperidone 1mg BID due to concern for possible internal preoccupation. 12/11/2024: -Start ativan 1mg TID IV for presumed catatonia, if he shows a beneficial response then can increase further to 2mg TID IV as needed -Will consider use of antipsychotic as catatonia symptoms resolve if concerns for psychosis/internal preoccupation persists Interval History Identifying Information 29 yo man with history of depression, anxiety, ADHD and recent hospitalization in [place] for elevated CK, concern for catatonia and new diagnosis of fatty liver disease and ZULEMA (no CPAP yet, using wedge pillow) admitted medically due to unresponsive state. Psychiatry consulted due to concern for catatonia. Chief Complaint "Good". Subjective Subjective Patient was seen & assessed and interval progress reviewed. Would not respond to verbal prompts or resisted assessment at times overnight. Today awake and talking after about 30 minutes of getting AM IV ativan dose. He reports his mood is "good" but has ongoing muscle stiffness. Reports low appetite but willing to try to eat. Less intense staring, odd blinking pattern today. Lying in bed. EEG normal per neurology note. Physical Exam Vital Signs (Past 24 Hours) Last Vital Signs Temp 36.6 C 12/13/24 15:03 Pulse 122 H 12/13/24 15:03 Resp 18 12/13/24 15:03 BP 137/93 12/13/24 15:03 Pulse Ox 93 12/13/24 15:03 O2 Del Method Room Air 12/13/24 15:03 Results & Data ([facility]) Laboratory Results Laboratory Results - last 24 hr 12/13/24 12/13/24 05:46 10:55 Sodium 139 Potassium 4.1 Chloride 105 Carbon Dioxide 26 Anion Gap 8 BUN 11 Creatinine 0.81 Est Cr Clr Drug Dosing 151.9 eGFR 123.16 BUN/Creatinine Ratio 13.6 Glucose 81 Calcium 9.8 Magnesium 2.0 Total Bilirubin 0.7 AST 25 ALT 54 H Alkaline Phosphatase 69 Total Protein 7.1 Albumin 4.7 Globulin 2.4 L Albumin/Globulin Ratio 2.0 Vitamin B12 739 25-OH Vitamin D Total 17.6 L Current Inpatient Medications Current Inpatient Medications: Current Inpatient Medications Acetaminophen (Ofirmev) 1,000 mg in 100 mls @ 400 mls/hr IV Q8H PRN PRN Reason: Fever Stop: 12/14/24 11:13 Lorazepam (Lorazepam 2 Mg/1 Ml Vial) 2 mg IV TID [facility] Stop: 01/12/25 13:59 Last Admin: 12/13/24 13:47 Dose: 2 mg Ondansetron HCl (Ondansetron Inj 2 Mg/Ml 2 Ml Vial) 4 mg IV Q6H PRN PRN Reason: Nausea And Vomiting Stop: 01/10/25 11:13 Vitamin D (Cholecalciferol 125 Mcg (5,000 Units) Tab) 125 mcg PO QAM [facility] Stop: 01/12/25 12:54 Last Admin: 12/13/24 13:47 Dose: 125 mcg
[2024-12-14 06:47] LABS: Albumin Globulin Ratio 1.8 (0.9-2); Albumin Level 4.5 gm/dl (3.4-5.0); BUN Creatinine Ratio 14.6 (10-20); Bilirubin,Total 0.5 mg/dl (0.2-1.0); Calcium 9.6 mg/dl (8.6-10.3); Globulin 2.5 gm/dl (2.5-4.0); Potassium 3.9 mmol/L (3.5-5.1)
--- NOTE | 2024-12-14 11:58 | Psychiatric Progress Note ---
Date of Service December 14, 2024 Impression / Recommendations Impression Diagnostically significant concern for catatonia and possibly psychosis given suspicion he may be internally preoccupied. Does seem that he had a fairly dramatic response to ativan dose earlier in ED, as was eating and speaking with his eyes open on my examination. Differential including functional neurological disorder given this was reportedly one of the suspected possible diagnoses following his admission in [place] vs prolonged withdrawal symptoms from previous energy drink/caffeine/Vyanse use. A: Improving, increase ativan to further target catatonia, still with some muscle stiffness, decreased eye blinking and decreased spontaneous speech which likely represents some ongoing catatonia. Overall, I spent a total of 40 minutes with this case including review of chart records, review of labwork, direct evaluation of the patient at bedside, counseling the patient, discussion of the patient with the hospitalist provider, discussion with the psychiatric liason during clinical rounds, review of marlon ateral historian information from girlfriend and mother at bedside and documentation in the electronic health record. (1) Catatonia: (2) Unresponsive state: Plan 12/14/2024: -Increase ativan to 3mg TID IV 12/13/2024: -Increase ativan to 2mg TID IV then consider transition to po tomorrow if improvement as family hopes to bring him home to [place] on Wednesday12/12/2024: -consider overnight pulse ox monitor given recent diagnosis of sleep apnea -continue ativan 1mg TID IV and titrate to effect up to 2mg TID IV -if limited response to ativan or increased sedation then discontinue and trial risperidone 1mg BID due to concern for possible internal preoccupation. 12/11/2024: -Start ativan 1mg TID IV for presumed catatonia, if he shows a beneficial response then can increase further to 2mg TID IV as needed -Will consider use of antipsychotic as catatonia symptoms resolve if concerns for psychosis/internal preoccupation persists Interval History Identifying Information 29 yo man with history of depression, anxiety, ADHD and recent hospitalization in [place] for elevated CK, concern for catatonia and new diagnosis of fatty liver disease and ZULEMA (no CPAP yet, using wedge pillow) admitted medically due to unresponsive state. Psychiatry consulted due to concern for catatonia. Chief Complaint "I felt a little unsteady". Subjective Subjective Patient was seen & assessed and interval progress reviewed. Interacting more, eating, playing video games yesterday. Family reports increasingly alertness, improvement since prior to admission. Physical Exam Vital Signs (Past 24 Hours) Last Vital Signs Temp 36.8 C 12/14/24 07:42 Pulse 90 12/14/24 07:42 Resp 16 12/14/24 07:42 BP 130/88 12/14/24 07:42 Pulse Ox 96 12/14/24 07:42 O2 Del Method Room Air 12/14/24 09:33 Results & Data ([facility]) Laboratory Results Laboratory Results - last 24 hr 12/13/24 12/13/24 12/14/24 05:46 10:55 05:52 Sodium 140 Potassium 3.9 Chloride 106 Carbon Dioxide 26 Anion Gap 8 BUN 12 Creatinine 0.82 Est Cr Clr Drug Dosing 150.0 eGFR 122.71 BUN/Creatinine Ratio 14.6 Glucose 107 H Calcium 9.6 Magnesium 2.0 Total Bilirubin 0.5 AST 23 ALT 52 Alkaline Phosphatase 67 Total Protein 7.0 Albumin 4.5 Globulin 2.5 Albumin/Globulin Ratio 1.8 Vitamin B12 739 25-OH Vitamin D Total 17.6 L Current Inpatient Medications Current Inpatient Medications: Current Inpatient Medications Lorazepam (Lorazepam 2 Mg/1 Ml Vial) 2 mg IV TID [facility] Stop: 01/12/25 13:59 Last Admin: 12/14/24 09:17 Dose: 2 mg Ondansetron HCl (Ondansetron Inj 2 Mg/Ml 2 Ml Vial) 4 mg IV Q6H PRN PRN Reason: Nausea And Vomiting Stop: 01/10/25 11:13 Vitamin D (Cholecalciferol 125 Mcg (5,000 Units) Tab) 125 mcg PO QAM [facility] Stop: 01/12/25 12:54 Last Admin: 12/14/24 09:17 Dose: 125 mcg
--- NOTE | 2024-12-14 13:42 | Electrocardiogram Report ---
Test Reason : Blood Pressure : */* mmHG Vent. Rate : 114 BPM Atrial Rate : 114 BPM P-R Int : 146 ms QRS Dur : 94 ms QT Int : 322 ms P-R-T Axes : 73 90 -25 degrees QTcB Int : 443 ms Sinus tachycardia Rightward axis T wave abnormality, consider inferolateral ischemia Abnormal ECG When compared with ECG of 11-Dec-2024 05:59, No significant change was found Confirmed by Lang Jesus ([id number]) on 12/14/2024 1:41:49 PM Referred By: REFERRED SELF Confirmed By: Lang Jesus
[2024-12-14] MEDS: LORazepam 2 MG/1 ML VIAL IV SCH ×2 (13:44→22:21)
--- NOTE | 2024-12-14 15:41 | Hospitalist Progress Note ---
Date of Service December 14, 2024 Assessment & Plan (1) Unresponsive state: Plan: Psychiatry consultation and recommendations appreciated. This appears to be a catatonic state that is responsive to benzodiazepine therapy. Psychiatry recommended increase in dosage of Ativan today, December 14. He is receiving this medication parenterally and will be switched to oral dosing tomorrow, December 15. Neurology consultation appreciated. EEG and brain MRI results are normal. (2) ADHD: Plan: By history. Currently he takes no medications for this (3) Hepatic steatosis: Plan: Mildly elevated ALT. Other liver enzymes are entirely normal. Ammonia level normal. (4) Vitamin D deficiency: Plan: Oral supplementation started Plan Hopeful discharge to home with family on December 16 Admission and Anticipated Discharge Date Admission Date: December 11, 2024 Subjective Alert and oriented at the time of my examination. Psychiatry entry noted. Ativan has been uptitrated to 3 mg intravenously 3 times a day. This will be switched to oral dosing tomorrow, December 15. Hypomagnesemia has been corrected to 2.0. No further urinary retention. Anticipate discharge to home with family on December 16 Review of Systems 2 Review of Systems: Constitutionalno fever or chills ENTno blurred vision, no double vision, no epistaxis, no sore throat Respiratoryno cough, no wheezing, no shortness of breath Cardiacno palpitations, no chest pain, no syncope Bessie nausea, vomiting, diarrhea, melena, hematochezia GUno urinary retention, no urinary incontinence, no dysuria, no hematuria Musculoskeletalno joint pain, no muscle tenderness Skinno bruising, no rashes, no pruritus Neurono isolated weakness, no paresthesia, no weakness Psychno depression, no anxiety Physical Exam 2 Physical Exam: General-alert and oriented x3, no fever, no chills HEENT-head atraumatic and normocephalic, pupils equal and reactive to light, extraocular muscles intact Neck-no lymphadenopathy or thyromegaly, trachea midline Chest-clear to auscultation. No rales, wheezing or rhonchi Cardiac-regular rate and rhythm, normal S1 and S2 Abdomen-normal bowel sounds, no hepatosplenomegaly Extremities-no cyanosis, clubbing, or edema Neuro-cranial nerves II through XII intact, motor and sensory function within normal limits, strength symmetrical, no focal deficits Psych-normal affect, normal mood Results & Data Results & Data Vital Signs (Past 12 Hours) Vital Signs Temp Pulse Resp BP Pulse Ox O2 Del Method 12/14/24 09:33 Room Air 12/14/24 07:42 36.8 C 90 16 130/88 96 Room Air Laboratory Results 12/11/24 06:02 12/14/24 05:52 PG Care Time/CCT Total # of Minutes Spent Total Time Spent with Patient: Total time spent is greater than 50% in coordination of care (as documented) at patient's floor/unit and/or counseling patient: Coding Level of Care Code 98601 SUB INP/OBS CARE 2/35MIN Diagnoses Unresponsive state R41.89 ADHD F90.9 Hepatic steatosis K76.0 Vitamin D deficiency E55.9
--- NOTE | 2024-12-14 22:04 | Communication Note ---
Date of Service: December 14, 2024 Contacted by RN to notify that, per protocol, patient had to be moved to monitored floor for higher dose (3mg) of scheduled Ativan. Brought this point to patient's parents who were at bedside who state they did not wish for the patient to be moved as they felt the patient would become agitated with constant moves. Discussed that, given the previously mentioned protocol, if patient were to stay on current floor, Ativan dose would need to stay at the 2 mg. Patient's parents expressed understanding and preference to stay in his current room and speak to primary team in the morning. Patient already got one dose of Ativan 3 mg at 13:44 of 12/14/24. Ativan 3 mg IV held and Ativan 2 mg restarted. Resident Activity Tracking Resident Involvement: Resident Care Provided Care Provided: Adult Hospital Medicine
[2024-12-15] MEDS: LORazepam 1 MG TAB PO SCH (08:23)
[2024-12-15] MEDS ORDERED: LORazepam 2 MG/1 ML VIAL IV SCH (09:00)
--- NOTE | 2024-12-15 13:11 | Hospitalist Progress Note ---
Date of Service December 15, 2024 Assessment & Plan (1) Unresponsive state: Plan: Psychiatry consultation and recommendations appreciated. This appears to be a catatonic state that is responsive to benzodiazepine therapy. Ativan 3 mg 3 times a day switch from IV dosing to oral dosing to prevent the need for transfer to a different room. Neurology consultation appreciated. EEG and brain MRI results are normal. (2) ADHD: Plan: By history. Currently he takes no medications for this (3) Hepatic steatosis: Plan: Mildly elevated ALT. Other liver enzymes are entirely normal. Ammonia level normal. (4) Vitamin D deficiency: Plan: Oral supplementation started Plan Hopeful discharge to home with family tomorrowDecember 16 Admission and Anticipated Discharge Date Admission Date: December 11, 2024 Subjective Alert and oriented. Family is present. Ativan switched to oral dosing to prevent the patient from being transferred to a different room. Apparently he cannot remain in his current room if he is given Ativan 3 mg intravenously 3 times a day. Psychiatry entry noted. He probably will go home tomorrow, December 16. Review of Systems 2 Review of Systems: Constitutionalno fever or chills ENTno blurred vision, no double vision, no epistaxis, no sore throat Respiratoryno cough, no wheezing, no shortness of breath Cardiacno palpitations, no chest pain, no syncope Bessie nausea, vomiting, diarrhea, melena, hematochezia GUno urinary retention, no urinary incontinence, no dysuria, no hematuria Musculoskeletalno joint pain, no muscle tenderness Skinno bruising, no rashes, no pruritus Neurono isolated weakness, no paresthesia, no weakness Psychno depression, no anxiety Physical Exam 2 Physical Exam: General-alert and oriented x3, no fever, no chills HEENT-head atraumatic and normocephalic, pupils equal and reactive to light, extraocular muscles intact Neck-no lymphadenopathy or thyromegaly, trachea midline Chest-clear to auscultation. No rales, wheezing or rhonchi Cardiac-regular rate and rhythm, normal S1 and S2 Abdomen-normal bowel sounds, no hepatosplenomegaly Extremities-no cyanosis, clubbing, or edema Neuro-cranial nerves II through XII intact, motor and sensory function within normal limits, strength symmetrical, no focal deficits Psych-normal affect, normal mood Results & Data Results & Data Vital Signs (Past 12 Hours) Vital Signs Temp Pulse Resp BP Pulse Ox O2 Del Method 12/15/24 07:12 36.6 C 80 17 130/82 94 Room Air Laboratory Results 12/11/24 06:02 12/14/24 05:52 PG Care Time/CCT Total # of Minutes Spent Total Time Spent with Patient: Total time spent is greater than 50% in coordination of care (as documented) at patient's floor/unit and/or counseling patient: Coding Level of Care Code 10112 SUB INP/OBS CARE 2/35MIN Diagnoses Unresponsive state R41.89 ADHD F90.9 Hepatic steatosis K76.0 Vitamin D deficiency E55.9
--- NOTE | 2024-12-15 16:54 | Psychiatric Progress Note ---
Date of Service December 15, 2024 Impression / Recommendations Impression Diagnostically consistent with catatonia based on ativan response. A: Improving,tolerating transition to po so far. Discussed recommendation to get outpatient appointment with psychiatrist in [place] and provided with letter for medical withdrawal per patient and family request. Overall, I spent a total of 35 minutes with this case including review of chart records, review of labwork, direct evaluation of the patient at bedside, counseling the patient, discussion of the patient with the hospitalist provider, discussion with the psychiatric liason during clinical rounds, review of collateral historian information from girlfriend, father and mother at bedside and documentation in the electronic health record. (1) Catatonia: (2) Unresponsive state: Plan 12/15/2024: -Continue ativan 3mg po TID 12/14/2024: -Increase ativan to 3mg TID IV 12/13/2024: -Increase ativan to 2mg TID IV then consider transition to po tomorrow if improvement as family hopes to bring him home to [place] on Wednesday12/12/2024: -consider overnight pulse ox monitor given recent diagnosis of sleep apnea -continue ativan 1mg TID IV and titrate to effect up to 2mg TID IV -if limited response to ativan or increased sedation then discontinue and trial risperidone 1mg BID due to concern for possible internal preoccupation. 12/11/2024: -Start ativan 1mg TID IV for presumed catatonia, if he shows a beneficial response then can increase further to 2mg TID IV as needed -Will consider use of antipsychotic as catatonia symptoms resolve if concerns for psychosis/internal preoccupation persists Interval History Identifying Information 29 yo man with history of depression, anxiety, ADHD and recent hospitalization in [place] for elevated CK, concern for catatonia and new diagnosis of fatty liver disease and ZULEMA (no CPAP yet, using wedge pillow) admitted medically due to unresponsive state. Psychiatry consulted due to concern for catatonia. Chief Complaint "Good". Subjective Subjective Patient was seen & assessed and interval progress reviewed. Eating, awake and moving around, talking more per family. Reports mood is "good". Denies muscle stiffness. Showing more affect. Family agreeable to working on getting appointment with his outpatient psychiatrist in [place]. Hoping to return to [place] on Wednesday. Tolerating conversion to po ativan so far. Physical Exam Vital Signs (Past 24 Hours) Last Vital Signs Temp 36.8 C 12/15/24 14:15 Pulse 110 H 12/15/24 14:15 Resp 16 12/15/24 14:15 BP 133/86 12/15/24 14:15 Pulse Ox 92 12/15/24 14:15 O2 Del Method Room Air 12/15/24 14:15 Results & Data ([facility]) Current Inpatient Medications Current Inpatient Medications: Current Inpatient Medications Lorazepam (Lorazepam 1 Mg Tab) 3 mg PO TID [facility] Stop: 01/14/25 08:59 Last Admin: 12/15/24 14:00 Dose: 3 mg Ondansetron HCl (Ondansetron Inj 2 Mg/Ml 2 Ml Vial) 4 mg IV Q6H PRN PRN Reason: Nausea And Vomiting Stop: 01/10/25 11:13 Vitamin D (Cholecalciferol 125 Mcg (5,000 Units) Tab) 125 mcg PO QAM [facility] Stop: 01/12/25 12:54 Last Admin: 12/15/24 08:23 Dose: 125 mcg
--- NOTE | 2024-12-16 11:01 | Discharge Summary ---
Discharge Summary Date of Service December 16, 2024 Principal Dx & Hospital Course #1 = Principal Diagnosis (1) Unresponsive state: Psychiatry consultation and recommendations appreciated. This appears to be a catatonic state that is responsive to benzodiazepine therapy. Tolerating Ativan 3 mg 3 times a day very well. Neurology consultation appreciated. EEG and brain MRI results are normal. (2) ADHD: By history. Currently he takes no medications for this (3) Hepatic steatosis: Mildly elevated ALT. Other liver enzymes are entirely normal. Ammonia level normal. (4) Vitamin D deficiency: Oral supplementation started. Continue vitamin D3 daily at discharge Plan Home today, December 16. He will return to [place] and follow-up with a psychiatrist next week. Admission HPI Per Admitting Provider 29-year-old white male with a history of ADHD on no medications and depression. He was recently hospitalized and [place] for suspected depression. At that time, his EEG was reportedly normal. In our ED his chest x-ray reveals low lung volumes, EKG reveals normal sinus rhythm with nonspecific ST and T wave changes, head CT scan is negative, ammonia level is normal, CK is 51. Talk screen is pending. On examination the patient is unresponsive but squints to prevent eye examination. He will not allow either hand to fall on his face. He does grimace with sternal rub and he withdraws bilateral feet with plantar tickle. He received lorazepam intravenously in the ED. ABGs are pending to rule out CO2 narcosis but CO2 on basic metabolic profile is within normal limits. Psychiatry consultation has been requested. He will be kept n.p.o. on IV fluids and admitted for further evaluation and treatment. Discharge Exam General-alert and oriented x3, no fever, no chills HEENT-head atraumatic and normocephalic, pupils equal and reactive to light, extraocular muscles intact Neck-no lymphadenopathy or thyromegaly, trachea midline Chest-clear to auscultation. No rales, wheezing or rhonchi Cardiac-regular rate and rhythm, normal S1 and S2 Abdomen-normal bowel sounds, no hepatosplenomegaly Extremities-no cyanosis, clubbing, or edema Neuro-cranial nerves II through XII intact, motor and sensory function within normal limits, strength symmetrical, no focal deficits Psych-normal affect, normal mood Discharge Plan Discharge Items Patient Disposition: Home - Self-Care Reason For Visit: UNRESPONSIVE Discharge Diagnosis: Catatonia, depression Activity: Resume your previous activity Non-emergency contact: Primary Care Provider and Psychiatrist Call non-emergency contact if: your symptoms worsen Follow-up/Referrals: [facility] [Primary Care Provider] - Diet: Regular Addtl Attending Provider Instructions: Take Ativan (lorazepam) 3 mg 3 times daily. Prescriptions for a 2 mg tablet and a 1 mg tablet have been sent to [facility] pharmacy on [address]. See psychiatrist in [place] as soon as possible for follow-up. Take vitamin D3 supplement once a day. You do not need a prescription for this Pending Studies at Discharge: No Stand-Alone Forms: [facility], Smoking Cessation Medications and DC Order Prescriptions: New lorazepam 2 mg tablet 2 mg PO TID Qty: 60 0RF lorazepam 1 mg tablet 1 mg PO TID Qty: 60 0RF Rx Instructions: total 3mg three times a day for catatonia No Action No Known Home Medications Discharge Orders: Discharge Order (Routine); Ordered 12/16/24 Ordered By: López Davenport Admission Data Admit Date/Time: 12/11/24 08:17 Attending Provider: López Davenport Admit Provider: López Davenport Primary Care Provider: [facility] Other Providers: Param Morton; Siobhan Pleitez; Fidencio Tavares; Deisi Thurston; Rebekah Rahman; Moris Payne; Alyson Saravia; Dave Vargas; Manny Mari; Bhupendra Martinez; Marie Ni; Briseida Beltrán; Demetra Darling; Vinod Hylton Hospital Stay Data Consultations 12/11/24 07:50 ED Decision to Admit Stat 12/11/24 11:14 Consult Psychiatry Routine 12/12/24 11:39 Consult Neurology Routine Diagnostic Imagining Performed 12/11/24 06:07 CT head/brain wo con Stat 12/12/24 11:40 MRI Brain [MR brain wo con] Urgent Pending Results Patient Have Any Pending Studies at Discharge: No Discharge Instructions Given to Patient (Per Discharging Provider) Take Ativan (lorazepam) 3 mg 3 times daily. Prescriptions for a 2 mg tablet and a 1 mg tablet have been sent to [facility] pharmacy on [address]. See psychiatrist in [place] as soon as possible for follow-up. Take vitamin D3 supplement once a day. You do not need a prescription for this Total Time Total Time Spent Total Time Spent (In Minutes): 45 minutes Coding Level of Care Code 61352 INP/OBS DISCH >30 MIN Diagnoses Unresponsive state R41.89 ADHD F90.9 Hepatic steatosis K76.0 Vitamin D deficiency E55.9
== END 2024-12-16 14:15 | disposition home or self-care (01) | DRG 884 ==
LOC: ED 05:45 → EDINP 08:17 → 2W 11:13 → 3E 12-12 22:23